=== PATIENT | male | born 1980 | race Hispanic/Latino ===

== ENCOUNTER → 2025-01-11 | Day surgery (SDC) | payer BC ==
[2025-01-10 10:25] LABS: BASOPHILS % 0.4 % (0.0-1.0); EOSINOPHILS # (AUTO) 0.1 (0.0-0.4); EOSINOPHILS % 1.5 % (0.0-6.0); HEMATOCRIT 46.1 % (38.2-49.6); HEMOGLOBIN 15.1 g/dL (14.0-18.0); LYMPHOCYTES # (AUTO) 2.6 (1.0-3.2); LYMPHOCYTES % 31.8 % (18.0-39.1); MEAN CORPUSCULAR HEMOGLOBIN 28.3 pg (28-32); MEAN CORPUSCULAR HGB CONC 32.8 g/dL (31-35); MEAN CORPUSCULAR VOLUME 86.5 fL (81-99); MONOCYTES # (AUTO) 0.6 (0.2-0.8); NEUTROPHILS # (AUTO) 4.8 (2.1-6.9); NEUTROPHILS % 57.8 % (38.7-80.0); PLATELET COUNT 341 x10e3/uL (140-360); RED BLOOD COUNT 5.33 x10e6/uL (4.3-5.7); RED CELL DISTRIBUTION WIDTH 13.5 % (11.7-14.4)
[~2025-01-11] MED LIST: ACETAMINOPHEN 1000 MG/100 ML 100 ML IV ONE; ACETAMINOPHEN 1000 MG/100 ML IV PRN; AMLODIPINE BESYL5 MG PO; ASPIRIN 325 MG TAB PO SCH; ASPIRIN81 MG PO; CELECOXIB 100 MG CAP PO SCH; DIPHENHYDRAMINE HCL INJ 50 MG/ML VIAL IV PRN; DOCUSATE SODIUM 100 MG CAP PO PRN; FAMOTIDINE 20 MG/2 ML VIAL IV ONE; FENTANYL CITRATE/PF 100MCG/2 ML INJ ONE; HYDROCODONE/APAP 5MG-325MG TAB PO PRN; HYDROCODONE/APAP 7.5MG-325MG 1 EA TAB ONE; HYDROCODONE/APAP 7.5MG-325MG 1 EA TAB PO PRN; HYDROMORPHONE 2MG/ML ONE; LIDOCAINE HCL 2% LOCAL INJ 5 ML SDV VIAL INJ ONE; METOCLOPRAMIDE HCL 10 MG/2ML VIAL ONE; ONDANSETRON HCL INJ 2MG/ML 2ML 2 MG/ML VIAL IV PRN; ONDANSETRON HCL INJ 2MG/ML 2ML 2 MG/ML VIAL ONE; PHENYLEPHRINE HCL 1% 10 MG/ML VIAL ONE; PROPOFOL IV EMULSION 10 MG/ML 20 ML VIAL ONE; ROCURONIUM BROMIDE 1 ML IV ONE; ROPIVACAINE/EPI/CLONIDINE/KET 50 ML SYRINGE INJ ONE; SODIUM CHLORIDE 0.9% 1000ML 1,000 ML IV SCH; SUCCINYLCHOLINE CHLORIDE 20 MG/ML 10ML VIAL ONE; SUGAMMADEX SODIUM 200 MG/2 ML VIAL IV ONE; ZESTRIL10 MG PO
[2025-01-11] MEDS: DEXAMETHASONE SOD PHOS 10 MG/1 ML VIAL ONE (06:13)
[2025-01-11] MEDS: GABAPENTIN 300 MG CAP ONE (06:13)
[2025-01-11] MEDS: LACTATED RINGER'S 1,000 ML ONE (06:13)
[2025-01-11] MEDS: CEFAZOLIN SODIUM 2 GM ONE (06:14)
[2025-01-11] MEDS: CELECOXIB 200 MG CAP ONE (06:14)
[2025-01-11 09:35] VITALS: TEMP 97.4
[2025-01-11] MEDS: HYDRALAZINE HCL 20 MG/ML VIAL ONE (10:28)
[2025-01-11] MEDS: HYDROCODONE/APAP 7.5MG-325MG 1 EA TAB PO ONE (10:40)
[2025-01-11 11:30] VITALS: BP 144/93; PULSE 97; RESP 18; O2SAT 97
== END | disposition home or self-care (01) ==
LOC: OR 05:21
PROVIDERS: ATTEND Specialist
DX: M87.851 Other osteonecrosis, right femur (principal); M16.11 Unilateral primary osteoarthritis, right hip; M17.0 Bilateral primary osteoarthritis of knee; G47.33 Obstructive sleep apnea (adult) (pediatric); E66.01 Morbid (severe) obesity due to excess calories; I10 Essential (primary) hypertension; Z01.812 Encounter for preprocedural laboratory examination; Z79.82 Long term (current) use of aspirin; Z79.1 Long term (current) use of non-steroidal anti-inflammatories (NSAID); Z79.899 Other long term (current) drug therapy; Z68.41 Body mass index [BMI] 40.0-44.9, adult; Z86.73 Personal history of transient ischemic attack (TIA), and cerebral infarction without residual deficits
CPT/HCPCS: 27130; 36415; 72170; 85025; 86850; 86900; 97116; 97161; 97530; C1713; C1776 ×3; J0131; J0330; J0360; J1100; J1171; J1308; J2003; J2371; J2405; J2704; J2765; J3010; J7121

== ENCOUNTER → 2025-05-03 | Day surgery (SDC) | payer BC ==
[~2025-05-03] MED LIST changes: +DEXAMETHASONE SOD PHOS INJ 4 MG/ML SDV ONE; -FAMOTIDINE 20 MG/2 ML VIAL IV ONE; -HYDROCODONE/APAP 7.5MG-325MG 1 EA TAB ONE; -HYDROCODONE/APAP 7.5MG-325MG 1 EA TAB PO PRN; +LABETALOL HCL 0 ML ONE; -METOCLOPRAMIDE HCL 10 MG/2ML VIAL ONE; +MIDAZOLAM HCL 2 MG/2 ML VIAL ONE; -PHENYLEPHRINE HCL 1% 10 MG/ML VIAL ONE; +SEVOFLURANE INHAL SOLN 250 ML PEN BTL ONE; -SUCCINYLCHOLINE CHLORIDE 20 MG/ML 10ML VIAL ONE
[2025-05-03] MEDS: CELECOXIB 200 MG CAP ONE (06:17)
[2025-05-03] MEDS: LACTATED RINGER'S 1,000 ML ONE (06:17)
[2025-05-03] MEDS: CEFAZOLIN SODIUM 2 GM ONE (06:17)
[2025-05-03] MEDS: DEXAMETHASONE SOD PHOS 10 MG/1 ML VIAL ONE (06:17)
[2025-05-03] MEDS: GABAPENTIN 300 MG CAP ONE (06:17)
[2025-05-03 09:49] VITALS: TEMP 97.1
[2025-05-03] MEDS: HYDROMORPHONE 1MG/1ML INJ ONE (10:00)
[2025-05-03] MEDS: HYDROCODONE/APAP 7.5MG-325MG 1 EA TAB PO PRN (11:00)
[2025-05-03 11:30] VITALS: BP 141/99; PULSE 91; RESP 18; O2SAT 94
== END | disposition home health service (06) ==
LOC: OR 05:19
PROVIDERS: ATTEND Specialist
DX: M16.12 Unilateral primary osteoarthritis, left hip (principal); I10 Essential (primary) hypertension; E66.01 Morbid (severe) obesity due to excess calories; Z68.41 Body mass index [BMI] 40.0-44.9, adult; Z86.73 Personal history of transient ischemic attack (TIA), and cerebral infarction without residual deficits; Z01.810 Encounter for preprocedural cardiovascular examination; Z01.812 Encounter for preprocedural laboratory examination
CPT/HCPCS: 27130; 72170; 86850; 86900; 93005; 97116; 97161; C1713 ×2; C1776 ×3; J0131; J1100 ×2; J1171 ×2; J2003; J2250; J2405; J2704; J3010; J7121